=== PATIENT | male | born 1965 | race Asian ===

== ENCOUNTER 2018-05-04 11:50 | Emergency (ER) | payer OTHER ==
[~2018-05-04] VITALS: Ht 165.1 cm; Wt 117.9 kg
[2018-05-04 11:59] VITALS: Ht 165.1 cm; Wt 117.9 kg
[2018-05-04 14:10] VITALS: BP 175/110
== END 2018-05-04 14:10 | disposition home or self-care (01) ==
LOC: ED 11:50 → EDBD 11:50 → ED 14:10
DX: B34.9 Viral infection, unspecified (principal); J45.901 Unspecified asthma with (acute) exacerbation; I48.91 Unspecified atrial fibrillation; I10 Essential (primary) hypertension; E11.9 Type 2 diabetes mellitus without complications

== ENCOUNTER 2018-08-21 09:39 | Emergency (ER) | payer OTHER ==
[~2018-08-21] VITALS: Ht 165.1 cm; Wt 120.2 kg
[2018-08-21 09:50] VITALS: Ht 165.1 cm; Wt 120.2 kg
--- NOTE | 2018-08-21 12:05 | NUR ---
PT INSTRUCTED ON HOW TO USE PEAK FLOW METER BUT STILL WAS UNABLE TO EFFECTIVELY USE IT, DESPITE VERBAL AND VISUAL INSTRUCTIONS WELL A DEMONSTRATION. HIGHEST OF [address] PHAN NOTIFIED OF POOR USE.
[2018-08-21 12:41] VITALS: BP 180/103
== END 2018-08-21 12:42 | disposition home or self-care (01) ==
LOC: ED 09:39
DX: J45.901 Unspecified asthma with (acute) exacerbation (principal); I10 Essential (primary) hypertension; E11.9 Type 2 diabetes mellitus without complications; I48.91 Unspecified atrial fibrillation; Z98.890 Other specified postprocedural states
CPT/HCPCS: 94150; J2930; J7040; J7613; J7644